=== PATIENT | female | born 1940 | race Caucasian/White ===

== ENCOUNTER → 2019-07-15 | Outpatient (CLI) | payer MEDICARE | END | disposition home or self-care (01) | LOC: CFH 12:20 | PROVIDERS: ATTEND Nurse Practitioner Family | DX: M85.89 Other specified disorders of bone density and structure, multiple sites (principal); N95.9 Unspecified menopausal and perimenopausal disorder | CPT/HCPCS: 77080 ==

== ENCOUNTER 2019-08-03 11:05 | Observation (INO) | payer MEDICARE ==
[~2019-08-03] VITALS: Ht 167.6 cm; Wt 69.2 kg
--- NOTE | 2019-08-03 11:20 | NUR ---
PT BIB [facility] FOR SYNCOPAL EVENT WITNESSED X 1 AND MGLF X 1 THAT PT DOES NOT REMEMBER EVENT. PER EMS, FS 102, VSS, 20G PIV IN L WRIST ESTABLISHED EN ROUTE. PT DRESSED IN GOWN, ATTACHED TO MONITOR. ROOM AIR, NAD, CALL LIGHT WITHIN REACH, SIDERAIL X [address] FAMILY AT BEDSIDE. PT DENIES BLOOD THINNER USE, PUPILS PERRL 3 AND BRISK. PT DENIES NAUSEA OR VOMITTING OR HEADACHE.
[2019-08-03] MEDS ORDERED: SODIUM CHLORIDE 0.9% 1,000 ML IV ONE (11:22)
--- NOTE | 2019-08-03 11:22 | NUR ---
MD AT BEDSIDE, POSSIBLE PLAN FOR ADMISSION FOR OVERNIGHT OBSERVATION.
[2019-08-03] MEDS ORDERED: SODIUM CHLORIDE FLUSH 10ML SYR IVF ONE (11:30)
--- NOTE | 2019-08-03 11:36 | NUR ---
IV FLUIDS STARTED, PT TO CT.
--- NOTE | 2019-08-03 11:47 | NUR ---
PT BACK FROM CT.
[2019-08-03 11:49] LABS: BASOPHILS # (AUTO) 0.03 x10^3/uL (0-0.1); BASOPHILS % (AUTO) 0 % (0-1); EOSINOPHILS # (AUTO) 0.24 x10^3/uL (0-0.4); EOSINOPHILS % (AUTO) 3 % (1-7); LYMPHOCYTES # (AUTO) 1.08 x10^3/uL (1-3.4); LYMPHOCYTES % (AUTO) 15 % (22-44); MD NO; MEAN CORPUSCULAR HEMOGLOBIN 30.1 pg (27.0-34.8); MEAN CORPUSCULAR HGB CONC 32.5 g/dL (32.4-35.8); MEAN CORPUSCULAR VOLUME 92.6 fL (80-100); MEAN PLATELET VOLUME 8.5 fL (7.4-10.4); MONOCYTES # (AUTO) 0.76 x10^3/uL (0.2-0.8); MONOCYTES % (AUTO) 11 % (2-9); NEUTROPHILS # (AUTO) 4.98 x10^3/uL (1.8-6.8); NEUTROPHILS % (AUTO) 70 % (42-75); PLATELET COUNT 234 x10^3/uL (130-400); RED BLOOD COUNT 4.59 x10^6/uL (3.82-5.3); RED CELL DISTRIBUTION WIDTH 14.7 % (9.6-15.2)
--- NOTE | 2019-08-03 11:50 | NUR ---
XRAY AT BEDSIDE.
[2019-08-03 12:01] LABS: CHLORIDE 102 mmol/L (98-107)
[2019-08-03 12:10] LABS: ALANINE AMINOTRANSFERASE 28 U/L (12-78); ALBUMIN 3.5 g/dL (3.4-5.0); ALKALINE PHOSPHATASE 64 U/L (45-117); ANION GAP 8 mmol/L (5-15); BILIRUBIN,TOTAL 0.4 mg/dL (0.2-1.0); CREATININE 1.22 mg/dL (0.55-1.02); TOTAL PROTEIN 6.8 g/dL (6.4-8.2); TROPONIN I < 0.015 ng/mL (0.000-0.045)
--- NOTE | 2019-08-03 12:20 | NUR ---
TECH AT BEDSIDE FOR EKG.
--- NOTE | 2019-08-03 12:22 | NUR ---
PT AMBULATORY TO RESTROOM WITH NO C/O DIZZINESS. UA SENT.
[2019-08-03] MEDS: SODIUM CHLORIDE 0.9% 1,000 ML IV SCH ×2 (12:51→21:41)
[2019-08-03 12:57] LABS: CULTURE INDICATED? YES; MICROSCOPIC INDICATED
[2019-08-03] MEDS ORDERED: ONDANSETRON 2MG/ML, 2ML IVPush PRN (13:00)
[2019-08-03] MEDS ORDERED: BACLOFEN 10 MG TABLET PO PRN (13:00)
[2019-08-03] MEDS ORDERED: hydrALAzine 20 MG/ML, 1ML IVPush PRN (13:00)
[2019-08-03] MEDS ORDERED: ACETAMINOPHEN 325 MG TABLET PO PRN (13:00)
[2019-08-03] MEDS ORDERED: morphine SULFATE 10 MG/ML, 1ML IVPush PRN (13:00)
[2019-08-03] MEDS ORDERED: ONDANSETRON ODT 4 MG PO PRN (13:00)
--- NOTE | 2019-08-03 13:26 | NUR ---
MED REC PARTIALLY COMPLETED PT DOES NOT KNOW DOSES.
[2019-08-03] MEDS ORDERED: ASPI-496 PO (13:28)
[2019-08-03] MEDS ORDERED: TRAMADOL (13:28)
[2019-08-03] MEDS ORDERED: SIMVASTATIN (13:28)
[2019-08-03] MEDS ORDERED: BENAZEPRIL (13:28)
[2019-08-03] MEDS ORDERED: GABAPENTIN (13:28)
[2019-08-03] MEDS ORDERED: AMITRIPTYLINE (13:28)
[2019-08-03] MEDS ORDERED: LEVO75TA PO (13:28)
--- NOTE | 2019-08-03 13:28 | NUR ---
REPORT GIVEN TO TONIA BL[facility]. PT TO TRANSFER TO INPATIENT STATUS.
--- NOTE | 2019-08-03 13:54 | NUR ---
PT GIVEN COFFEE PER REQUEST, VERIFIED WITH CURRENT DIET ORDER.
[2019-08-03 14:33] VITALS: BP 135/84
[2019-08-03] MEDS ORDERED: GABA300C10 PO (19:48)
[2019-08-03] MEDS ORDERED: TRAM50TA2 PO (19:49)
[2019-08-03] MEDS ORDERED: BENA1TAB10 PO (19:50)
[2019-08-03] MEDS ORDERED: SIMV40TA3 PO (19:50)
[2019-08-03] MEDS ORDERED: AMIT10TA PO (19:51)
[2019-08-03] MEDS ORDERED: LEVO75TA5 PO (19:51)
[2019-08-03] MEDS ORDERED: OMEG-13 PO (19:56)
[2019-08-03] MEDS ORDERED: UBID100C41 PO (19:56)
[2019-08-03] MEDS ORDERED: VIT1TABL32 PO (19:57)
[2019-08-03] MEDS ORDERED: CALC-451 PO (19:58)
[2019-08-03 20:14] VITALS: BP 111/71
[2019-08-03] MEDS ORDERED: AMITRIPTYLINE 10 MG TABLET PO SCH (21:00)
[2019-08-03] MEDS ORDERED: SIMVASTATIN 20 MG TABLET PO SCH (21:00)
[2019-08-04] VITALS (7 sets, daily range): BP systolic 115–159; BP diastolic 58–81
[2019-08-04 05:44] LABS: BASOPHILS # (AUTO) 0.04 x10^3/uL (0-0.1); BASOPHILS % (AUTO) 1 % (0-1); EOSINOPHILS % (AUTO) 5 % (1-7); LYMPHOCYTES # (AUTO) 1.43 x10^3/uL (1-3.4); LYMPHOCYTES % (AUTO) 24 % (22-44); MD NO; MEAN CORPUSCULAR HEMOGLOBIN 30.4 pg (27.0-34.8); MEAN CORPUSCULAR HGB CONC 33.1 g/dL (32.4-35.8); MEAN CORPUSCULAR VOLUME 91.8 fL (80-100); MEAN PLATELET VOLUME 8.3 fL (7.4-10.4); MONOCYTES # (AUTO) 0.73 x10^3/uL (0.2-0.8); MONOCYTES % (AUTO) 12 % (2-9); NEUTROPHILS # (AUTO) 3.57 x10^3/uL (1.8-6.8); NEUTROPHILS % (AUTO) 59 % (42-75); PLATELET COUNT 222 x10^3/uL (130-400); RED BLOOD COUNT 4.03 x10^6/uL (3.82-5.3); RED CELL DISTRIBUTION WIDTH 14.9 % (9.6-15.2)
[2019-08-04 05:52] LABS: ANION GAP 6 mmol/L (5-15); CALCIUM 8.3 mg/dL (8.5-10.1); CHLORIDE 112 mmol/L (98-107); CREATININE 0.97 mg/dL (0.55-1.02)
[2019-08-04] MEDS ORDERED: LEVOTHYROXINE 75 MCG TABLET PO SCH (06:00)
[2019-08-04] MEDS: SODIUM CHLORIDE 0.9% 1,000 ML IV SCH (08:43)
== END 2019-08-04 16:00 | disposition home or self-care (01) ==
LOC: ED 12:55 → EDIP 13:29 → INTOOBSV 13:29 → 4WST 14:20 → DCLOUNGE 08-04 15:50
PROVIDERS: ADMIT Hospitalist; ATTEND Internal Medicine
DX: S06.0X9A Concussion with loss of consciousness of unspecified duration, initial encounter (principal); R41.82 Altered mental status, unspecified; E78.5 Hyperlipidemia, unspecified; I10 Essential (primary) hypertension; G89.29 Other chronic pain; N17.9 Acute kidney failure, unspecified; M19.011 Primary osteoarthritis, right shoulder; Z79.899 Other long term (current) drug therapy; Z79.82 Long term (current) use of aspirin; W10.9XXA Fall (on) (from) unspecified stairs and steps, initial encounter; Y93.89 Activity, other specified; Y92.89 Other specified places as the place of occurrence of the external cause
CPT/HCPCS: 36415; 70450; 71045; 73020; 80048; 80053; 81001; 83605; 83735; 84443; 84484; 85025; 87086; 93005; 93306; 93880; 96360; 96361; 99284; G0378; J7030

== ENCOUNTER → 2020-09-28 | Outpatient (CLI) | payer MEDICARE ==
[~2020-09-28] MED LIST: AMIT10TA PO; AMITRIPTYLINE; ASPI-496 PO; BENA1TAB10 PO; BENAZEPRIL; CALC-451 PO; GABA300C10 PO; GABAPENTIN; LEVO75TA PO; LEVO75TA5 PO; OMEG-13 PO; SIMV40TA20 PO; SIMVASTATIN; TRAM50TA2 PO; TRAMADOL; UBID100C41 PO; VIT1TABL32 PO
== END | disposition home or self-care (01) ==
LOC: CFH 12:54
PROVIDERS: ATTEND Internal Medicine Cardiovascular Disease
DX: I08.8 Other rheumatic multiple valve diseases (principal); R01.1 Cardiac murmur, unspecified
CPT/HCPCS: 93306